=== PATIENT | male | born 1955 | race Caucasian/White ===

== ENCOUNTER → 2022-12-31 14:07 | Outpatient (CLI) | payer MEDICARE, SELFPAY ==
--- NOTE | ~2022-12-31 | MR_ITS ---
EXAMINATION: MR ankle RT wo con, MR foot RT wo con DATE: 12/31/2022 15:08 INDICATION: Joint pain at the right foot and ankle TECHNIQUE: 1. Magnetic resonance imaging (MRI) of the right ankle was performed without intravenous contrast. Se quences included axial, sagittal and coronal PD-weighted FSE and PD-weighted FS FSE. 2. MRI of the right foot was performed without intravenous contrast. Sequences included axial and cor onal PD-weighted FS FSE, sagittal and coronal T1-weighted FSE, axial PD-weighted FSE and sagittal flu id sensitive FSE STIR. COMPARISON: None. FINDINGS: Medial ankle ligaments: There is loss of the only clearly defined striated pattern of the deep deltoid ligament consistent wi th scarring related to chronic sprain. Partial tear of the superficial deltoid ligament with marked a ttenuation of the anterior tibionavicular and tibia spring component. The more posterior superficial deltoid ligament is normal. The spring ligament complex is normal. Lateral ankle ligaments: The anterior and posterior inferior tibiofibular ligaments are normal. Complete tear of the anterior talofibular ligament which is essentially absent. There is also a tear of the proximal aspect of the calcaneofibular ligament which appears lax and attenuated distally. There is heterotopic ossicle at t he fibular side of the posterior talofibular ligament also likely sequela of chronic partial tear.. Tendons: Small enthesophytes project ossicle at the lateral side of the calcaneal insertion of the otherwise n ormal distal Achilles tendon. The normal peroneus longus tendon is situated between a longitudinal sp lit tear of the peroneus brevis tendon centered at level of the tip of the lateral malleolus. There i s associated mild peroneal tenosynovitis. The tibialis anterior and extensor hallucis longus and exte nsor digitorum longus tendons are normal. The tibialis posterior, flexor digitorum longus and flexor hallucis longus tendons are normal. Plantar fascia: Moderate-sized plantar calcaneal spur. Severe enthesopathy of the central component of the plantar ap oneurosis which is thickened with increased signal. Additional mild enthesopathy of the medial and la teral compartments. There is a partial thickness tear involving a small portion of the calcaneal orig in of the central component of the plantar aponeurosis. Bones/other: Mild hallux valgus. Alignment is otherwise normal at the right foot and ankle. Nonspecific marrow garcia ma throughout the navicula and to lesser degree at the lateral cuneiform, both without evident fractu res. Otherwise normal bone marrow signal throughout with no fracture or pathologic marrow replacing p rocess. 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 Full-thickness chondral fissure extendin g anteroposteriorly along the junction of the cartilage at the lateral and cephalad articular surface s of the talar dome. There is minimal delamination extending an additional couple millimeter medially along the bone chondral interface of the cartilage at the lateral most margin of the talar dome. Sma ll focus of susceptibility artifact centered in the soft tissues dorsal to the mid cuneiform. The Lis franc ligament as well as the collateral ligament complex at the metatarsophalangeal and interphalang eal joints are normal. Fluid: Likely reactive small joint effusion at the first metatarsophalangeal joint. Otherwise physiologic am ount fluid in the joint spaces. IMPRESSION: 1. Chronic medial and lateral ankle sprains with complete tears of the anterior talofibular and calca neofibular ligaments and partial tears of the posterior talofibular, deltoid and superficial deltoid ligaments. 2. Peroneal tenosynovitis with longitudinal split tear of the peroneus brevis tendon. 3. Chronic severe plantar enthesopathy
== END ==
PROVIDERS: PCP Family Medicine; Visit Provider Family Medicine
DX: S96.911A Strain of unspecified muscle and tendon at ankle and foot level, right foot, initial encounter (principal); M65.871 Other synovitis and tenosynovitis, right ankle and foot; M77.31 Calcaneal spur, right foot; M15.9 Polyosteoarthritis, unspecified; R60.9 Edema, unspecified; M79.671 Pain in right foot; M25.571 Pain in right ankle and joints of right foot; T14.90XA Injury, unspecified, initial encounter
CPT/HCPCS: 73718; 73721